=== PATIENT | male | born 1955 | race American Indian/Alaskan Native ===

== ENCOUNTER 2016-10-02 20:38 | Emergency (ER) | payer MEDICARE ==
[2016-10-02 21:16] VITALS: BP 156/106
[2016-10-02 21:40] LABS: Eosinophils % (Auto) 3.2 % (0.0-4.3); Hematocrit 47.4 % (35.5-45.6); Hemoglobin 15.8 gm/dl (11.8-15.2); Mean Corpuscular HGB Conc 33 % (32-34); Mean Corpuscular Hemoglobin 28 pg (28-32); Mean Corpuscular Volume 85 fl (84-94); Platelet Count 290 K/mm3 (140-440); Red Blood Count 5.59 M/mm3 (3.65-5.03); White Blood Count 7.7 K/mm3 (4.5-11.0)
[2016-10-02 21:58] LABS: BUN/Creatinine Ratio 22.22; Calcium 9.9 mg/dL (8.4-10.2); Chloride 102.5 mmol/L (98-107); Potassium 3.9 mmol/L (3.6-5.0)
--- NOTE | 2016-10-03 01:02 | Emergency Department Report ---
HPI - General Chief Complaint: Medical Clearance Time Seen by Provider: 10/02/16 23:37 - HPI HPI: Patient is a 60-year-old male presenting with police for evaluation. As per police, patient's imaging analyst was arrested today so patient was brought to the ED "to check if he is okay". 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 He currently has no complaints except chronic lower back pain, which he reports is not hurting him at this moment. Otherwise no other complaints ED Past Medical Hx - Past Medical History Hx Hypertension: Yes Hx Diabetes: Yes Additional medical history: Blindness - Surgical History Additional Surgical History: Umbilical Hernia repair, Bilateral Breast Surgery - Social History Smoking Status: Current Every Day Smoker Substance Use Type: None - Medications Home Medications: Home Medications Medication Instructions Recorded Confirmed Last Taken Type Unobtainable 10/02/16 10/02/16 Unknown History ED Review of Systems ROS: Stated complaint: SHAKING Other details as noted in HPI Comment: All other systems reviewed and negative Physical Exam - Physical Exam Vital Signs: Vital Signs 10/02/16 21:01 Temperature 98.2 F Pulse Rate 107 H Respiratory 16 Rate Blood Pressure 156/106 Blood Pressure 156/106 [Left] O2 Sat by Pulse 100 Oximetry General: No acute distress, resting on the stretcher Physical Exam: HEENT: L surgical pupil, patient is blind in both eyes, moist mucosa CV: S1S2, no murmurs Pulm: CTA bilaterally Abd: S/NT/ND Ext: (-)edema, FROM neuro: AAox3, no focal deficits, patient pleasant and following commands ED Course Vital Signs 10/02/16 21:01 Temperature 98.2 F Pulse Rate 107 H Respiratory 16 Rate Blood Pressure 156/106 Blood Pressure 156/106 [Left] O2 Sat by Pulse 100 Oximetry ED Medical Decision Making - Lab Data Result diagrams: 10/02/16 21:26 10/02/16 21:26 Critical care attestation.: If time is entered above; I have spent that time in minutes in the direct care of this critically ill patient, excluding procedure time. ED Disposition Clinical Impression: Wellness examination Disposition: DISCHARGED TO HOME OR SELFCARE Is pt being admited?: No Condition: Stable Instructions: Normal Exam (ED) Referrals: PRIMARY CARE, [Primary Care Provider] - 3-5 Days
== END 2016-10-03 13:15 | disposition home or self-care (01) ==
LOC: ED 20:38
DX: Z00.8 Encounter for other general examination (principal); I10 Essential (primary) hypertension; E11.9 Type 2 diabetes mellitus without complications; F17.200 Nicotine dependence, unspecified, uncomplicated
CPT/HCPCS: 36415; 80048; 82962; 85025; 99283